=== PATIENT | female | born 1960 | race American Indian/Alaskan Native ===

== ENCOUNTER 2019-06-07 15:44 | Emergency (ER) | payer MEDICARE ==
--- NOTE | 2019-06-07 16:44 | Emergency Department Report ---
ED Psych HPI - General Chief Complaint: Psych Stated Complaint: MH EVAL/TRYING TO DRINK BLEACH Time Seen by Provider: 06/07/19 16:40 Source: patient, EMS Mode of arrival: Ambulatory Limitations: Altered Mental Status - History of Present Illness Initial Comments: Patient is a 59-year-old female that presents emergency room with complaints of mental evaluation. Patient was sent here from her home for evaluation. Patient is 1013 by the long term care social worker home for schizophrenia, acute psychosis and drinking bleach and washing her body with bleach. Patient states she was washing her biting bleach and took a Full of bleach in order to get the antibiotic played out of her body. Patient states she believes her body in the assisted and she hasn't has a disease to give her. Patient is complaining of delusions and paranoia. Patient complains of audiovisual hallucinations. MD Complaint: altered mental status -: Sudden Associated Psychiatric Symptoms: racing thoughts, auditory hallucinations, visual hallucinations, delusions History of same: Yes Quality: constant Improves With: none Worsens With: none Context: significant life stressor Associated Symptoms: denies: confusion, headache, shortness of breath, nausea, vomiting, syncope, insomnia Treatments Prior to Arrival: placed on mental he - Related Data Allergies Allergy/AdvReac Type Severity Reaction Status Date / Time No Known Allergies Allergy Verified 06/07/19 20:59 ED Review of Systems ROS: Stated complaint: MH EVAL/TRYING TO DRINK BLEACH Other details as noted in HPI Constitutional: denies: chills, fever Eyes: denies: eye pain, eye discharge, vision change ENT: denies: ear pain, throat pain Respiratory: denies: cough, shortness of breath, wheezing Cardiovascular: denies: chest pain, palpitations Endocrine: no symptoms reported Gastrointestinal: denies: abdominal pain, nausea, diarrhea Genitourinary: denies: urgency, dysuria, discharge Musculoskeletal: denies: back pain, joint swelling, arthralgia Skin: denies: rash, lesions Neurological: denies: headache, weakness, paresthesias Psychiatric: auditory hallucinations, visual hallucinations. denies: anxiety, depression Hematological/Lymphatic: denies: easy bleeding, easy bruising ED Past Medical Hx - Past Medical History Previous Medical History?: Yes Hx Hypertension: Yes Hx Psychiatric Treatment: Yes (schizophrenia) - Surgical History Past Surgical History?: No - Family History Family history: no significant - Social History Smoking Status: Current Every Day Smoker Substance Use Type: None ED Physical Exam - General Limitations: No Limitations General appearance: alert, in no apparent distress - Head Head exam: Present: atraumatic, normocephalic - Eye Eye exam: Present: normal appearance, PERRL Pupils: Present: normal accommodation - ENT ENT exam: Present: normal orophraynx, mucous membranes moist - Neck Neck exam: Present: normal inspection - Respiratory Respiratory exam: Present: normal lung sounds bilaterally. Absent: respiratory distress, wheezes, rales, rhonchi, stridor - Cardiovascular Cardiovascular Exam: Present: regular rate, normal rhythm. Absent: systolic murmur, diastolic murmur, rubs, gallop - GI/Abdominal GI/Abdominal exam: Present: soft, normal bowel sounds. Absent: distended, tenderness, guarding - Rectal Rectal exam: Present: deferred - Extremities Exam Extremities exam: Present: normal inspection - Back Exam Back exam: Present: normal inspection - Neurological Exam Neurological exam: Present: alert, oriented X3 - Psychiatric Psychiatric exam: Present: anxious - Expanded Psychiatric Exam Expanded Focused psych exam: Present: pressured speech, delusional, paranoid, flight of ideas, loose associations - Skin Skin exam: Present: warm, dry, intact, normal color. Absent: rash ED Course Vital Signs 06/07/19 06/07/19 16:32 20:26 Temperature 97.5 F L 97.9 F Pulse Rate 61 66 Respiratory 18 16 Rate Blood Pressure 160/96 120/90 [Left] O2 Sat by Pulse 100 100 Oximetry - Reevaluation(s) Reevaluation #1: Initial evaluation done. Portion control be called by the bedside. Patient placed on 1013. 06/07/19 16:40 JARED STEWART Female : 1960 MedRec# [id number] 06/07/19 16:30 (created 06/07/19 17:15) - Nurse Note by REJI ESTRELLA Acct Num: [id number] : 1960 Patient Age: 59 1630 Poison control center notified, case # [id number], advised that pt states she drank household hydrogen peroxide and bleach this am after breakfast, JOSEPH Medrano states that there are no labs to draw to test for household bleach and peroxide, also states there is no concern for toxicity at this time, Initialized on 06/07/19 17:15 - END OF NOTE Reevaluation #2: Patient is medically cleared. I discussed all results with patient. Patient will remain in the ER as a 1013. 06/07/19 23:31 ED Medical Decision Making - Lab Data Result diagrams: 06/07/19 16:51 06/07/19 16:51 - Medical Decision Making Patient is a 59-year-old female Emergency room with acute psychosis. Patient was sent here because the patient was washing her body and ingesting bleach. Patient ingested approximately 4 weeks. Patient states she ingested bleach not to herself or to wash out the plate and she was given from her home. Patient on any consistent with acute psychosis. Patient placed on a 1013. Patient had labs done and were negative. Patient is medically clear. Patient will remain in the ER as a 1013 until accepted into appropriate psychiatric facility. with regards to the bleach ingestion, poison control was called and no further recommendations were received from poison control for the ingestion of the police due to the small amount. - Differential Diagnosis medical clearance. Acute psychosis. Critical Care Time: Yes Critical care attestation.: If time is entered above; I have spent that time in minutes in the direct care of this critically ill patient, excluding procedure time. Critical Care Time: 35 minutes ED Disposition Clinical Impression: Acute psychosis Bleach ingestion Qualifiers: Encounter type: initial encounter Injury intent: undetermined intent Qualified Code(s): T54.94XA - Toxic effect of unspecified corrosive substance, undetermined, initial encounter Disposition: DC/TX-65 PSY HOSP/PSY UNIT Is pt being admited?: No Does the pt Need Aspirin: No Condition: Stable Additional Instructions: Patient is medically cleared Referrals: TRACY FOX MD [Primary Care Provider] - 2-3 Days Time of Disposition: 23:34
[2019-06-07 17:32] LABS: Alanine Aminotransferase 12 units/L (7-56); Albumin 4.7 g/dL (3.9-5); BUN/Creatinine Ratio 19; Blood Urea Nitrogen 15 mg/dL (7-17); Calcium 10.1 mg/dL (8.4-10.2); Hemolysis Index 24
[2019-06-07 17:45] LABS: Basophils % (Auto) 0.3 % (0.0-1.8); Eosinophils # (Auto) 0.2 K/mm3 (0.0-0.4); Eosinophils % (Auto) 3.3 % (0.0-4.3); Hematocrit 43.5 % (30.3-42.9); Lymphocytes # (Auto) 1.3 K/mm3 (1.2-5.4); Lymphocytes % (Auto) 23.6 % (13.4-35.0); Mean Corpuscular HGB Conc 35 % (30-34); Mean Corpuscular Volume 97 fl (79-97); Monocytes # (Auto) 0.4 K/mm3 (0.0-0.8); Monocytes % (Auto) 6.7 % (0.0-7.3); Platelet Count 280 K/mm3 (140-440); Red Blood Count 4.47 M/mm3 (3.65-5.03); Red Cell Distribution Width 12.2 % (13.2-15.2)
[2019-06-07] MEDS ORDERED: GEODON IM ONE (20:49)
[2019-06-07] MEDS ORDERED: WATER FOR INJ Sterile (PF) 10 ML ONE (20:54)
[2019-06-07 22:40] LABS: Bacteria,Urine 1+ /HPF (Negative); Bilirubin,Urine NEG (Negative); Blood,Urine NEG (Negative); Color,Urine Amber (Yellow); Hyaline Casts,Urine 10 /LPF; Mucus,Urine 3+ /HPF
[2019-06-07 22:45] LABS: Amphetamine Screen,Urine PRESUMPTIVE NEGATIVE; Benzodiazepines Screen,Urine PRESUMPTIVE NEGATIVE; Cannabinoid Screen,Urine PRESUMPTIVE NEGATIVE; Cocaine Screen,Urine PRESUMPTIVE NEGATIVE; Methadone Screen,Urine PRESUMPTIVE NEGATIVE; Opiate Screen,Urine PRESUMPTIVE NEGATIVE
[2019-06-08] MEDS ORDERED: K-DUR PO ONE (00:14)
[2019-06-08 10:36] VITALS: BP 153/74
--- NOTE | 2019-06-08 12:04 | Consultation ---
History of Present Illness - Reason for Consult Consult date: 06/08/19 Reason for consult: Mental Health Evaluation Requesting physician: EDER MEDRANO III - Chief Complaint Chief complaint: "i was washing the vampires off me" - History of Present Psychiatric Illness 59 y.o. AA female who presented to the Er for drinking bleach along with washing her body with bleach. Today the patient was delusional during the assessment. She is adamant that she have "vampire and maniacs" after her. She stated that her thoughts were "scary" so she decided to drink bleach and was her body with bleach. She denies that she was trying to kill herself. She stated, "I needed to be clean inside and out." Most of her answers to questions were not logical. Overall, the patient's insight was poor. She denies SI/HI's and AVH's. Medications and Allergies Allergies Allergy/AdvReac Type Severity Reaction Status Date / Time No Known Allergies Allergy Verified 06/07/19 20:59 Past psychiatric history - Past Medical History Past Medical History: No medical history Past Surgical History: No surgical history - past Psychiatric treatment and history psychiatric treatment history: Several inpatient psy settings. Denies a fam psy hx. - Social History Social history: other ([facility]) Mental Status Exam - Vital signs Last Vital Signs Temp 97.5 F L 06/08/19 08:00 Pulse 67 06/08/19 08:00 Resp 18 06/08/19 08:00 BP 153/74 06/08/19 08:00 Pulse Ox 100 06/08/19 08:00 - Exam Narrative exam: MSE: Appearance: calm, cooperative Behavior: regular eye contact Speech: rapid speech Mood: "okay' Affect: congruent to mood Thought Process: tangential Thought Content: denies SI/HI's and VH's, paranoia, delusional Motor Activity: lying in bed Cognition: A/O x 3 Insight: poor Judgment: poor Results Result Diagrams: 06/07/19 16:51 06/07/19 16:51 Abnormal lab results 06/07/19 06/07/19 06/07/19 Range/Units 16:51 16:51 16:51 Hgb 15.0 H (10.1-14.3) gm/dl Hct 43.5 H (30.3-42.9) % MCH 34 H (28-32) pg MCHC 35 H (30-34) % RDW 12.2 L (13.2-15.2) % Potassium 3.1 L (3.6-5.0) mmol/L Total Protein 8.6 H (6.3-8.2) g/dL Salicylates < 0.3 L (2.8-20.0) mg/dL Acetaminophen (10.0-30.0) ug/mL 06/07/19 Range/Units 16:51 Hgb (10.1-14.3) gm/dl Hct (30.3-42.9) % MCH (28-32) pg MCHC (30-34) % RDW (13.2-15.2) % Potassium (3.6-5.0) mmol/L Total Protein (6.3-8.2) g/dL Salicylates (2.8-20.0) mg/dL Acetaminophen < 5.0 L (10.0-30.0) ug/mL All other labs normal. Assessment and Plan Assessment and plan: Impression: Unspecified Psychosis. Today the patient was delusional during the assessment. UDS was negative. DDx: Schizophrenia, Bipolar DO with psychosis, Delusional DO Recommendations/Plan: Continue 1013. Dispo: The patient was accepted at [facility] for inpatient psy services. Will staff with Dr Phylicia Higuera.
== END 2019-06-08 09:38 ==
LOC: EEVIPCON 15:44 → ED 15:44
DX: T54.94XA Toxic effect of unspecified corrosive substance, undetermined, initial encounter (principal); F29 Unspecified psychosis not due to a substance or known physiological condition; I10 Essential (primary) hypertension; F20.9 Schizophrenia, unspecified; F17.200 Nicotine dependence, unspecified, uncomplicated; X58.XXXA Exposure to other specified factors, initial encounter
CPT/HCPCS: 36415; 80053; 80307; 81001; 85025; 96372; 99291; J3486; 80320; G0480